=== PATIENT | female | born 1990 | race African-American/Black ===

== ENCOUNTER 2018-09-26 15:58 | Emergency (ER) | payer MEDICAID ==
[~2018-09-26] VITALS: Ht 167.6 cm; Wt 106.6 kg
--- NOTE | 2018-09-26 16:28 | NUR ---
ED Nurse Note: Patient walked into ED c/o right hip pain, as well as her chest pain. patient reports she is 8 months . 4 para 1. patient reports hx of left hip replacement and sickle cell disease. patient is alert awake x4 ambulatory steady gait. patient is breathing unlabored and even.
[2018-09-26] MEDS ORDERED: Albuterol ud Inhalation HHN ONE (17:00)
--- NOTE | 2018-09-26 17:00 | NUR ---
face sheet faxed to transfer center at [facility] for higher level cre transfer
[2018-09-26 17:07] VITALS: BP 112/78
--- NOTE | 2018-09-26 17:07 | Emergency Room Report ---
History of Present Illness General Chief Complaint: Chest Pain Source: Patient Present Illness HPI 28-year-old female presents to the emergency department complaining of 6 out of 10 in severity chest pain, cough and right hip pain 3 days. 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 Patient denies fevers or chills she reports in the past requiring nebulized albuterol treatments. Patient states that she is not prescribed an inhaler. Patient also is approximately 35 weeks and 2 days . Patient has been receiving intermittent obstetric care by various different doctors. Patient states that she has been in and out of assisted which has made it difficult for her to have one primary physician. She denies abdominal pain, cramping, vaginal discharge or bleeding. She reports normal movement. 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 Denies trauma or fall. Reports coughing exacerbates her chest pain. No relieving factors at this time. Allergies: Coded Allergies: SODIUM CITRATE (Verified Allergy, Unknown, 09/26/18) SULFAMETHOXAZOLE (Verified Allergy, Unknown, 09/26/18) TRIMETHOPRIM (Verified Allergy, Unknown, 09/26/18) Patient History Last Menstrual Period: 12/2017 Now: Yes - 8 MONTHS : 4 Para: 1 Nursing Documentation-[facility] Past Medical History: No History, Except For Hx Cardiac Problems: No - SPLEENECTOMY ,PORT-C-CATH Hx Hypertension: No - SICKLE CELL HIP REPLACEMENT Physical Exam Vital Signs Date Time Temp Pulse Resp B/P (MAP) Pulse Ox O2 Delivery O2 Flow Rate FiO2 09/26/18 16:18 98.1 116 24 95 Room Air Sp02 EP Interpretation: reviewed, normal General Appearance: no apparent distress, alert, GCS 15, non-toxic Head: normocephalic, atraumatic Eyes: bilateral eye normal inspection, bilateral eye PERRL ENT: hearing grossly normal, normal voice Neck: full range of motion Respiratory: chest non-tender, lungs clear, normal breath sounds, no respiratory distress, no wheezing, speaking full sentences Cardiovascular #1: regular rate, rhythm, no edema Gastrointestinal: normal bowel sounds, non tender, soft, other - Gravid Rectal: deferred Musculoskeletal: back normal, gait/station normal, normal range of motion, other - able to ambulate without assistance. , tender - Right lateral and anterior hip. Neurologic: alert, oriented x3, responsive, motor strength/tone normal, sensory intact, speech normal, grossly normal Psychiatric: judgement/insight normal Skin: normal color, no rash, warm/dry, well hydrated Lymphatic: no adenopathy Medical Decision Making PA Attestation Dr. schneider is my supervising Physician whom patient management has been discussed with. Diagnostic Impression: Primary Impression: Chest pain Qualified Codes: R07.1 - Chest pain on breathing ER Course 28-year-old female presents to the emergency department complaining of 6 out of 10 in severity chest pain, cough and right hip pain 3 days. 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 Patient denies fevers or chills she reports in the past requiring nebulized albuterol treatments. Patient states that she is not prescribed an inhaler. Patient also is approximately 35 weeks and 2 days . Patient has been receiving intermittent obstetric care by various different doctors. Patient states that she has been in and out of assisted which has made it difficult for her to have one primary physician. She denies abdominal pain, cramping, vaginal discharge or bleeding. She reports normal movement. 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 Denies trauma or fall. Reports coughing exacerbates her chest pain. No relieving factors at this time. Ddx considered but are not limited to AR, pneumonia, contusion, costochondritis , PE, ACS, Sickle Cell crisis, aortic dissection just to name a few. Vital signs: Pt. is tachycardic L, pt. is afebrile H&PE are most consistent with reproducible CP in a non toxic appearing pt. NAD. not in respiratory distress. ORDERS: - EK Tachycardic sinus rhythm -CBC: Leukocytosis -CMP: unremarkable -Troponin: WNL -Reticulocyte Count : Elevated 4.3 Bedside HR: 135 ED INTERVENTIONS: - PT. placed on cardiac monitoring. -1 Liter NS -Tylenol 650 PO -Albuterol HHN DISPOSITION: at this time pt. will be admitted to Dr. Stauffer for CP at [address] Stauffer agreed to admit the pt. and to continue pt. care management. Labs Test 09/26/18 17:30 White Blood Count 17.5 K/UL (4.8-10.8) Red Blood Count 3.51 M/UL (4.20-5.40) Hemoglobin 11.2 G/DL (12.0-16.0) Hematocrit 31.1 % (37.0-47.0) Mean Corpuscular Volume 89 FL (80-99) Mean Corpuscular Hemoglobin 31.8 PG (27.0-31.0) Mean Corpuscular Hemoglobin Concent 35.9 G/DL (32.0-36.0) Red Cell Distribution Width 14.3 % (11.6-14.8) Platelet Count 269 K/UL (150-450) Mean Platelet Volume 7.1 FL (6.5-10.1) Neutrophils (%) (Auto) % (45.0-75.0) Lymphocytes (%) (Auto) % (20.0-45.0) Monocytes (%) (Auto) % (1.0-10.0) Eosinophils (%) (Auto) % (0.0-3.0) Basophils (%) (Auto) % (0.0-2.0) Differential Total Cells Counted 100 Neutrophils % (Manual) 78 % (45-75) Lymphocytes % (Manual) 16 % (20-45) Monocytes % (Manual) 3 % (1-10) Eosinophils % (Manual) 1 % (0-3) Basophils % (Manual) 0 % (0-2) Band Neutrophils 2 % (0-8) Nucleated Red Blood Cells 4 /100 WBC Platelet Estimate Adequate Platelet Morphology Normal Polychromasia 1+ Anisocytosis 1+ Target Cells 1+ Reticulocyte Count 4.3 % (0.5-2.0) Sodium Level 139 MMOL/L (136-145) Potassium Level 3.2 MMOL/L (3.5-5.1) Chloride Level 105 MMOL/L (98-107) Carbon Dioxide Level 22 MMOL/L (21-32) Anion Gap 12 mmol/L (5-15) Blood Urea Nitrogen 5 mg/dL (7-18) Creatinine 0.6 MG/DL (0.55-1.30) Estimat Glomerular Filtration Rate > 60 mL/min (>60) Glucose Level 118 MG/DL (74-106) Calcium Level 8.6 MG/DL (8.5-10.1) Total Bilirubin 1.3 MG/DL (0.2-1.0) Direct Bilirubin 0.3 MG/DL (0.0-0.3) Aspartate Amino Transf (AST/SGOT) 30 U/L (15-37) Alanine Aminotransferase (ALT/SGPT) 15 U/L (12-78) Alkaline Phosphatase 201 U/L (46-116) Total Creatine Kinase 81 U/L (26-308) Troponin I 0.000 ng/mL (0.000-0.056) Total Protein 6.4 G/DL (6.4-8.2) Albumin 2.3 G/DL (3.4-5.0) Globulin 4.1 g/dL Albumin/Globulin Ratio 0.6 (1.0-2.7) EKG Diagnostic Results EP Interpretation: Dr. Romero Rate: tachycardiac - 116 Rhythm: NSR ST Segments: no acute changes ASA given to the pt in ED: No PA Scribe Text This Interpretation was scribed by ALLISON Mosquera. Last Vital Signs Date Time Temp Pulse Resp B/P (MAP) Pulse Ox O2 Delivery O2 Flow Rate FiO2 09/26/18 16:18 98.1 116 24 95 Room Air Disposition: ADMITTED INPATIENT Condition: Serious Referrals: NOT CHOSEN IPA/,REFERRING (PCP) Mariela Mosquera September 26, 2018 17:07
--- NOTE | 2018-09-26 17:37 | NUR ---
ED Nurse Note: right port-a-cath accessed using sterile technique. good blood return noted. blood sent to lab.
[2018-09-26 17:46] LABS: HEMATOCRIT 31.1 % (37.0-47.0); HEMOGLOBIN 11.2 G/DL (12.0-16.0); MEAN CORPUSCULAR VOLUME 89 FL (80-99); PLATELET COUNT 269 K/UL (150-450); RED BLOOD COUNT 3.51 M/UL (4.20-5.40); RED CELL DISTRIBUTION WIDTH 14.3 % (11.6-14.8); WHITE BLOOD COUNT 17.5 K/UL (4.8-10.8)
--- NOTE | 2018-09-26 17:57 | NUR ---
patient has been accepted to [facility] labour and delivery triage by dr flores
[2018-09-26 17:58] VITALS: BP 115/72
--- NOTE | 2018-09-26 17:58 | NUR ---
eta for [facility] 1848
[2018-09-26 18:02] LABS: ANION GAP 12 mmol/L (5-15); BLOOD UREA NITROGEN 5 mg/dL (7-18); CALCIUM 8.6 MG/DL (8.5-10.1); CARBON DIOXIDE 22 MMOL/L (21-32); CHLORIDE 105 MMOL/L (98-107); CREATININE 0.6 MG/DL (0.55-1.30); POTASSIUM 3.2 MMOL/L (3.5-5.1); SODIUM 139 MMOL/L (136-145)
[2018-09-26 18:12] LABS: ALANINE AMINOTRANSFERASE 15 U/L (12-78); ALBUMIN 2.3 G/DL (3.4-5.0); ALBUMIN/GLOBULIN RATIO 0.6 (1.0-2.7); ALKALINE PHOSPHATASE 201 U/L (46-116); ASPARTATE AMINO TRANSFERASE 30 U/L (15-37); BILIRUBIN,TOTAL 1.3 MG/DL (0.2-1.0); CREATINE KINASE 81 U/L (26-308)
--- NOTE | 2018-09-26 18:12 | NUR ---
ED Nurse Note: Called [facility] and spoke with Winifred JULIAN, charge nurse for labor and delivery. report given to Winifred JULIAN.
[2018-09-26 18:13] LABS: BILIRUBIN,DIRECT 0.3 MG/DL (0.0-0.3)
--- NOTE | 2018-09-26 18:24 | NUR ---
ED Nurse Note: heart doppler was done by Mariela COOPER, heart rate is 135. heart tone is good
--- NOTE | 2018-09-26 18:29 | NUR ---
ED Nurse Note: called and spoke with Winifred and let her now about heart rate
--- NOTE | 2018-09-26 18:45 | NUR ---
ED Nurse Note: patient is being trasferred to [facility] labor and delivery unit via [facility] with all of her belongings without any complications. patient is in stable condition.
[2018-09-26 18:46] VITALS: BP 115/72
--- NOTE | 2018-09-28 20:27 | Cardiology Report ---
APPROVED REPORT EKG Measurement Heart [id number] Sinus tachycardia Otherwise normal ECG
== END 2018-09-26 18:45 | disposition other institution (70) ==
LOC: EMR 16:46
DX: O26.93 Pregnancy related conditions, unspecified, third trimester (principal); R07.1 Chest pain on breathing; Z88.2 Allergy status to sulfonamides; Z90.81 Acquired absence of spleen; Z96.649 Presence of unspecified artificial hip joint; Z3A.35 35 weeks gestation of pregnancy; R00.0 Tachycardia, unspecified; D72.829 Elevated white blood cell count, unspecified
CPT/HCPCS: 36415; 80053; 82248; 82550; 84484; 85007; 85025; 85044; 93005; 94640; 94664; 96360; 99284